=== PATIENT | male | born 1960 | race Caucasian/White ===

== ENCOUNTER 2018-12-19 16:25 | Emergency (ER) | payer BC ==
[~2018-12-19] VITALS: Ht 188 cm; Wt 83.9 kg
[2018-12-19] MEDS ORDERED: TETANUS/DIPHTHERIA TOX ADULT 0.5 ML SYR IM ONE (17:15)
--- NOTE | 2018-12-19 17:32 | Diagnostic Imaging Report ---
Exam: Right finger 3 views History: Pain Comparison: None. Findings: Fracture of the tuft distal phalanx index finger with soft tissue defect. Other structures visualized intact Impression: Fracture of the tuft distal phalanx index finger with soft tissue defect. Signed by: Dr. Alex Marie M.D. on 12/19/2018 5:29 PM
[2018-12-19] MEDS ORDERED: CEFAZOLIN SOD 1 GM VIAL IM ONE (18:45)
[2018-12-19 18:56] VITALS: BP 121/81
== END 2018-12-19 18:57 | disposition home or self-care (01) ==
LOC: ER 16:25
DX: S62.630B Displaced fracture of distal phalanx of right index finger, initial encounter for open fracture (principal); S61.300A Unspecified open wound of right index finger with damage to nail, initial encounter; W29.8XXA Contact with other powered hand tools and household machinery, initial encounter; Y92.008 Other place in unspecified non-institutional (private) residence as the place of occurrence of the external cause
CPT/HCPCS: 73140; 90471; 90714; 99283; J0690

== ENCOUNTER 2019-05-13 16:21 | Inpatient (IN) | payer BC ==
[~2019-05-13] VITALS: Ht 188 cm; Wt 84.4 kg
--- OUTSIDE RECORDS SUMMARY | 2019-05-13 16:24 | XMS REPORT ---
Author Author [facility] Address Unknown Phone Unavailable Care Team Providers Care Clinical Rehabilitation Coordinator Name Role Phone Indira CRUZ Unavailable Unavailable Problems This patient has no known problems. Allergies, Adverse Reactions, Alerts This patient has no known allergies or adverse reactions. Medications This patient has no known medications. Results Test Description Test Time Test Comments Text Results Atomic Results Result Comments FINGER RIGHT 2018-12-19 17:27:00 [place] [address] Patient Name: MATTEO DIXON MR #: [id number] : 1960 Age/Sex: 58/M Req #: [id number] Adm Physician: Ordered by: RAQUEL CRUZ MD Report #: [id number] Location: ER Room/Bed: Procedure: [id number] DX/FINGER RIGHT Exam Date: 12/19/18 Exam Time: 1712 REPORT STATUS: Signed Exam: Right finger 3 views History: Pain Comparison: None. Findings: Fracture of the tuft distal phalanx index finger with soft tissue defect. Other structures visualized intact Impression: Fracture of the tuft distal phalanx index finger with soft tissue defect. Signed by: Dr. Kj Anna M.D. on 12/19/2018 5:29 PM Dictated By: KJ ANNA MD [id number] Transcribed By: TEENA on 12/19/18 4813 COPY TO: RAQUEL CRUZ MD
--- OUTSIDE RECORDS SUMMARY | 2019-05-13 16:24 | XMS REPORT | Continuity of Care Document ---
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 Name Role Phone [facility] Unavailable Unavailable Problems No Data Provided for This Section Medications No Data Provided for This Section Allergies, Adverse Reactions, Alerts No Known Medication Allergies Immunizations No Data Provided for This Section Results No Data Provided for This Section Pathology Reports No Data Provided for This Section Diagnostic Reports No Data Provided for This Section Consultation Notes No Data Provided for This Section Discharge Summaries No Data Provided for This Section History and Physicals No Data Provided for This Section Vital Signs No Data Provided for This Section Encounters Location Location Details Encounter Type Encounter Number Reason For Visit Attending Provider ADM Date DC Date Status Source Departed Emergency Room [id number] RAQUEL CRUZ MD 12/19/2018 12/19/2018 [facility] Procedures No Data Provided for This Section Assessment and Plan No Data Provided for This Section Plan of Care Plan of Care Date Source Discharge Date 12/19/18 6:57pm Disposition HOME, SELF-CARE Condition at Discharge Stable Instructions/Education Provided Fractures - Phalanx (Finger) Forms Provided Work/School Excuse Prescriptions See Medication Section Additional Instructions/Education 1- You have an appointment at [facility] at 8[facility] with Dr Pierce 2- Go to the ER on [facility] to be registered 3- Do not eat or drink anything until surgery complete 12/19/2018 [facility] Social History Social History Date Source Smoking Status Start Date Stop Date Never Smoker 12/19/2018 [facility] Family History No Data Provided for This Section Advance Directives Order Name Results Value Date Source Advance Directives Advance Directives Directive Response Recorded Date/Time Does the patient have an advance directive? Yes 12/19/18 6:54pm If yes, is advance directive on file with [facility]? No 12/19/18 6:54pm If not on file with [facility] will patient provide a copy? No 04/26/19 6:54pm Do you have a Directive to Physician? Yes 12/19/18 6:54pm Do you have a Medical Power of Wrecker Operator? Yes 12/19/18 6:54pm Do you have an out of hospital Do Not Resuscitate Order? No 12/19/18 6:54pm Do you have any special needs we should be aware of? No 12/19/18 6:54pm Do you have a support person here with you today? Yes 12/19/18 6:54pm Did patient receive Notice of Privacy Practices? Yes 12/19/18 6:54pm Did patient receive patient rights and responsibilities? Yes 12/19/18 6:54pm 12/19/2018 [facility] Functional Status No Data Provided for This Section
[2019-05-13 17:27] VITALS: BP 134/68
[2019-05-13 17:35] VITALS: BP 134/68
[2019-05-13 17:36] VITALS: BP 134/68
[2019-05-13] MEDS ORDERED: ONDANSETRON HCL INJ 2MG/ML 2ML 2 MG/ML VIAL IV PRN (17:45)
[2019-05-13] MEDS ORDERED: LACTATED RINGER'S 1,000 ML ONE (17:49)
[2019-05-13] MEDS: LEVOFLOXACIN 500MG/D5W 100ML 100 ML IV SCH (17:54)
[2019-05-13] MEDS: LACTATED RINGER'S 1,000 ML IV SCH (17:55)
[2019-05-13] MEDS: HYDROMORPHONE 1MG/1ML INJ IV PRN (17:55)
[2019-05-13 18:05] LABS: BASOPHILS # (AUTO) 0.1 (0.0-0.1); BASOPHILS % 0.4 % (0.0-1.0); EOSINOPHILS # (AUTO) 0.1 (0.0-0.4); EOSINOPHILS % 0.7 % (0.0-6.0); HEMATOCRIT 38.5 % (38.2-49.6); HEMOGLOBIN 12.7 g/dL (14.0-18.0); LYMPHOCYTES # (AUTO) 0.8 (1.0-3.2); LYMPHOCYTES % 6.8 % (18.0-39.1); MEAN CORPUSCULAR HEMOGLOBIN 27.9 pg (28-32); MEAN CORPUSCULAR VOLUME 84.4 fL (81-99); MONOCYTES # (AUTO) 0.9 (0.2-0.8); MONOCYTES % 7.7 % (4.4-11.3); NEUTROPHILS # (AUTO) 10.2 (2.1-6.9); NEUTROPHILS % 83.8 % (38.7-80.0); PLATELET COUNT 195 x10e3/uL (140-360); RED BLOOD COUNT 4.56 x10e6/uL (4.3-5.7); RED CELL DISTRIBUTION WIDTH 12.5 % (11.7-14.4)
[2019-05-13 18:19] LABS: ANION GAP 14.4 mmol/L (8-16); BLOOD UREA NITROGEN 14 mg/dL (7-26); BUN/CREATININE RATIO 13 (6-25); CALCIUM 9.7 mg/dL (8.4-10.2); CARBON DIOXIDE 25 mmol/L (22-29); CHLORIDE 102 mmol/L (98-107); CREATININE, SERUM 1.04 mg/dL (0.72-1.25); EST GLOMERULAR FILTRATION RATE > 60 ML/MIN (60-); GLUCOSE 87 mg/dL (74-118); POTASSIUM 4.4 mmol/L (3.5-5.1); SODIUM 137 mmol/L (136-145)
[2019-05-13] MEDS ORDERED: PROPOFOL IV EMULSION 10 MG/ML 20 ML VIAL ONE (18:57)
[2019-05-13] MEDS ORDERED: ONDANSETRON HCL INJ 2MG/ML 2ML 2 MG/ML VIAL ONE (18:57)
[2019-05-13] MEDS ORDERED: LIDOCAINE HCL 2% LOCAL INJ 5 ML SDV VIAL INJ ONE (18:57)
[2019-05-13] MEDS: CLINDAMYCIN 300MG 50 ML IV SCH (19:39)
--- NOTE | 2019-05-13 19:45 | NUR ---
Patient returned from CT. IVF restarted. Patient is awake, alert, ambulatory and able to make needs know. POC discussed. Patient without any c/o voiced at this time. Spouse at bedside. He is aware he will be NPO for midnight for planned procedure. Call cheema within reach.
--- NOTE | 2019-05-13 19:58 | Diagnostic Imaging Report ---
EXAM: CT Chest WITH contrast INDICATION: Abscess. Cyst in right arm pit. COMPARISON: None TECHNIQUE: Chest was scanned utilizing a multidetector helical scanner from the lung apex through the level of the adrenal glands without administration of IV contrast. Coronal and sagittal reformations were obtained. Routine protocol was performed. IV CONTRAST: 100 mL of Isovue 360 COMPLICATIONS: None RADIATION DOSE: Total DLP: 616 mGy*cm Estimated effective dose: (DLP x 0.014 x size factor) mSv CTDIvol has been reviewed. It is below the limits set by the Radiation Protocol Committee (RPC). Dose modulation, iterative reconstruction, and/or weight based adjustment of the mA/kV was utilized to reduce the radiation dose to as low as reasonably achievable. FINDINGS: LINES/ TUBES: None. LUNGS AND AIRWAYS: Likely mild scarring/atelectasis in the lungs. Airways are normal. PLEURA: The pleural spaces are clear. HEART AND MEDIASTINUM: The thyroid gland is normal. No mediastinal, hilar or axillary lymphadenopathy. The heart is normal in size. There is no pericardial effusion. UPPER ABDOMEN: Unremarkable. BONES: The visualized bony thorax is within normal limits. SOFT TISSUES: Skin thickening with inflammatory change in the right axillary region with an associated ill-defined 4.6 x 4.0 x 4.0 cm low density mass along the lateral right chest wall localized to the superficial subcutaneous fat best seen on series 2 image 59-70. This could be due to a complex cyst or possibly a conglomeration of lymph nodes. IMPRESSION: Skin thickening with inflammatory change in the right axillary region with an associated ill-defined 4.6 x 4.0 x 4.0 cm low density mass along the lateral right chest wall localized to the superficial subcutaneous fat best seen on series 2 image 59-70. This could be due to a complex cyst or possibly a conglomeration of lymph nodes. Signed by: Dr. Tj Gay M.D. on 05/13/2019 7:31 PM
[2019-05-13 20:25] VITALS: BP 115/61
[2019-05-13 21:01] VITALS: BP 115/61
[2019-05-13] MEDS: VANCOMYCIN 1GM/NS 250 ML 250 ML IV SCH (22:30)
[2019-05-14] VITALS (7 sets, daily range): BP systolic 111–139; BP diastolic 60–71
[2019-05-14] MEDS ORDERED: ACETAMINOPHEN 1000 MG/100 ML IV SCH
[2019-05-14] MEDS ORDERED: ACETAMINOPHEN 1000 MG/100 ML IV PRN
[2019-05-14] MEDS ORDERED: SODIUM CHLORIDE 0.9% 50ML 50 ML ONE (02:10)
[2019-05-14] MEDS ORDERED: IOPAMIDOL 370 MG/ML 200 ML INFUS..BTL INJ ONE (02:10)
[2019-05-14] MEDS: KETOROLAC TROMETHAMINE 30 MG/ML VIAL IV PRN ×3 (03:30→20:07)
[2019-05-14] MEDS: CLINDAMYCIN 300MG 50 ML IV SCH ×3 (03:31→20:06)
[2019-05-14] MEDS: LACTATED RINGER'S 1,000 ML IV SCH ×2 (07:05→12:32)
--- NOTE | 2019-05-14 07:07 | NUR ---
Walking rounds done and report given. Call cheema within reach.
--- NOTE | 2019-05-14 07:15 | NUR ---
rcvd patient in report this am. Patient is asleep in bed at this time. No s/s of distress noted
[2019-05-14] MEDS: VANCOMYCIN 1GM/NS 250 ML 250 ML IV SCH ×2 (09:06→22:03)
[2019-05-14] MEDS: LEVOFLOXACIN 500MG/D5W 100ML 100 ML IV SCH (17:08)
--- NOTE | 2019-05-14 19:17 | NUR ---
received report. patient aaox4, resting in bed. family member at bedside. stable condition. resp even and unlabored. no distress observed. no needs voiced. bed locked and in lowest position, call light within easy reach.
--- NOTE | 2019-05-14 22:45 | NUR ---
IV started to left wrist 20g. patient tolerated well.
[2019-05-14] MEDS: ZOLPIDEM TARTRATE 5 MG TAB PO PRN (23:00)
[2019-05-15] VITALS: BP 129/71
--- NOTE | 2019-05-15 | NUR ---
reminded patient of NPO status. patient agrees with POC. call light within reach.
[2019-05-15 04:00] VITALS: BP 127/76
[2019-05-15] MEDS: CLINDAMYCIN 300MG 50 ML IV SCH ×3 (04:50→21:33)
[2019-05-15] MEDS: KETOROLAC TROMETHAMINE 30 MG/ML VIAL IV PRN ×2 (04:50→11:29)
--- NOTE | 2019-05-15 07:00 | NUR ---
BEDSIDE SHIFT REPORT RECEIVED FROM NIGHT RN. PT DENIES NEEDS AT THIS TIME.
[2019-05-15] MEDS: LACTATED RINGER'S 1,000 ML IV SCH ×2 (07:30→23:05)
[2019-05-15 07:48] VITALS: BP 128/74
[2019-05-15 08:00] VITALS: BP 128/74
[2019-05-15] MEDS: VANCOMYCIN 1GM/NS 250 ML 250 ML IV SCH ×2 (10:19→23:13)
[2019-05-15 12:40] VITALS: BP 142/79
[2019-05-15] MEDS ORDERED: HYDROGEN PEROXIDE 120 ML BTL ONE (12:57)
--- NOTE | 2019-05-15 13:08 | NUR ---
PT OFF THE FLOOR TO OR.
[2019-05-15] MEDS ORDERED: BUPIVACAINE 0.25%/EPI 30ML SDV INJ ONE (13:16)
[2019-05-15] MEDS ORDERED: SODIUM CHLORIDE 0.9% 1000ML 1,000 ML IV SCH (13:44)
[2019-05-15] MEDS ORDERED: ONDANSETRON HCL INJ 2MG/ML 2ML 2 MG/ML VIAL IV PRN (13:45)
--- NOTE | 2019-05-15 14:33 | Operative Report ---
DATE OF PROCEDURE: 05/15/2019 SURGEON: Francesco Bustos MD PREOPERATIVE DIAGNOSIS: Right axillary abscess with lymphadenitis. POSTOPERATIVE DIAGNOSIS: Right axillary abscess with lymphadenitis. PROCEDURE PERFORMED: Incision and drainage of right axillary abscess with biopsy of the abscess cavity. ANESTHESIA: General. ESTIMATED BLOOD LOSS: Minimal. DRAINS: None. COMPLICATIONS: None. 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 The patient's CT scan upon admission revealed an inflammatory process of the right axilla. On physical examination, what appeared to be a conglomerate of nodes with inflammatory phlegmonous type of infection and he was given intravenous antibiotics until today when the abscess mature and he was taken to the operating room. INTRAOPERATIVE FINDINGS: A well defined abscess in the right axillary region, which was completely drained. Obtaining non-foul smelling pus. Culture and sensitivities were taken. The abscess cavity was biopsied even though this is most likely an infectious process secondary to methicillin-resistant Staph. Two quarter-inch [place] drains were placed to drain the abscess cavity and interconnected. DESCRIPTION OF PROCEDURE: With the patient lying on the operative table in the supine position after administration of general endotracheal anesthesia, he was prepped and draped for incision and drainage of abscess of the right axillary region. The most fluctuant area of the abscess was incised. A large pocket of pus was entered. Loculations were broken down. The pus was drained. Culture and sensitivities were taken. Two counter incision were made superior and inferolateral to that and then the three incisions were interconnected with a quarter-inch [place] drain that was secured to itself with 3-0 silk. The cavity was copiously irrigated. Part of the abscess cavity was biopsied. Bleeding points were cauterized. After copious irrigation, the cavity was packed with gauze and a sterile dressing was applied. The patient will be admitted. We will continue in the hospitalization care with intravenous antibiotics. Francesco Bustos MD PJR/MODL /[id number]
[2019-05-15] MEDS ORDERED: ACETAMINOPHEN 1000 MG/100 ML 100 ML IV ONE (14:39)
[2019-05-15] MEDS ORDERED: MIDAZOLAM HCL 2 MG/2 ML VIAL ONE (15:18)
[2019-05-15] MEDS ORDERED: FENTANYL CITRATE/PF 100MCG/2 ML INJ ONE (15:18)
[2019-05-15] MEDS: HYDROMORPHONE 1MG/1ML INJ IV PRN (16:24)
[2019-05-15] MEDS: LEVOFLOXACIN 500MG/D5W 100ML 100 ML IV SCH (18:16)
[2019-05-15 20:00] VITALS: BP 120/65
--- NOTE | 2019-05-15 20:00 | NUR ---
ROUNDS DONE, PATIENT RESTING IN BED WITH HOB ELEVATED WATCHING TV, DRESSING TO RIGHT AXILLARY REMAIN INTACT, NO DRAINAGE NOTED. CALL LIGHT REMAIN IN REACH. WILL CONTINUE TO MONITOR.
[2019-05-15] MEDS: ZOLPIDEM TARTRATE 5 MG TAB PO PRN (23:39)
[2019-05-15] MEDS: HYDROCODONE/APAP 7.5MG-325MG 1 EA TAB PO PRN (23:39)
[2019-05-16] VITALS (9 sets, daily range): BP systolic 115–148; BP diastolic 67–80
--- NOTE | 2019-05-16 | NUR ---
CONTINUE RESTING, WILL CONTINUE TO MONITOR. CALL LIGHT IN REACH.
[2019-05-16] MEDS ORDERED: ASPIRIN81 MG PO (02:37)
[2019-05-16] MEDS ORDERED: METOPROLOL TART25 MG PO (02:37)
[2019-05-16] MEDS ORDERED: ONE DAILY FOR1 EAC1 PO (02:37)
[2019-05-16] MEDS ORDERED: PROBIOTIC & AC1 EACH PO (02:37)
[2019-05-16] MEDS ORDERED: HYDROCHLOROTH12.5 M1 PO (02:37)
[2019-05-16] MEDS ORDERED: OMEPRAZOLE40 MG PO (02:37)
[2019-05-16] MEDS ORDERED: ZANTAC 7575 MG PO (02:37)
[2019-05-16] MEDS ORDERED: LOSARTAN POTASS25 MG PO (02:37)
[2019-05-16] MEDS ORDERED: ZETIA10 MG PO (02:37)
[2019-05-16] MEDS ORDERED: MAGNESIUM100 MG PO (02:37)
--- NOTE | 2019-05-16 04:00 | NUR ---
IV CONTINUE INFUSING, NO DISTRESS NOTED, DRESSING REMAIN INTACT NO DRAINAGE NOTED. WILL CONTINUE TO MONITOR.
[2019-05-16] MEDS: CLINDAMYCIN 300MG 50 ML IV SCH ×3 (04:39→20:41)
--- NOTE | 2019-05-16 06:59 | NUR ---
PATIENT CONTINUE RESTING IN BED, NO COMPLAINTS VOICED AT THIS TIME, REPORT GIVEN TO ONCOMING NURSE.
[2019-05-16] MEDS: VANCOMYCIN 1GM/NS 250 ML 250 ML IV SCH ×2 (10:00→21:13)
--- NOTE | 2019-05-16 14:10 | NUR ---
patient transferred to floor. report called to chio. all personal belonings gathered by patient. vitals stable with no distress at time of transfer.
--- NOTE | 2019-05-16 14:19 | NUR ---
PATIENT ARRIVED ON THE UNIT AT 1413 PER WHEELCHAIR FROM OBS ROOM 183. PATIENT IS IN STABLE CONDITION WITH NO S/S OF RESPIRATORY DISTRESS. NO PAIN VOICED. DRESSING TO RIGHT AXILLARY SITE IS DRY AND INTACT. CALL LIGHT IS WITHIN REACH, PATIENT INSTRUCTED TO CALL FOR ASSISTANCE NEEDED.
[2019-05-16] MEDS: HYDROCODONE/APAP 7.5MG-325MG 1 EA TAB PO PRN (16:55)
[2019-05-16] MEDS: LEVOFLOXACIN 500MG/D5W 100ML 100 ML IV SCH (16:57)
[2019-05-16] MEDS ORDERED: SODIUM CHLORIDE 0.9% 250ML 250 ML ONE ×2 (16:57→21:00)
--- NOTE | 2019-05-16 19:07 | NUR ---
PATIENT IS IN STABLE CONDITION WITH NO S/S OF RESPIRATORY DISTRESS-NO PAIN VOICED. DRESSING APPLIED TO RIGHT AXILLARY SITE- DRESSING IS DRY AND INTACT. PRESENT IN ROOM. CALL LIGHT IS WITHIN REACH, PATIENT INSTRUCTED TO CALL FOR ASSISTANCE NEEDED. REPORT GIVEN TO ONCOMING NURSE.
[2019-05-16] MEDS: ZOLPIDEM TARTRATE 5 MG TAB PO PRN (23:00)
[2019-05-17] VITALS (9 sets, daily range): BP systolic 115–144; BP diastolic 65–81
[2019-05-17] MEDS: CLINDAMYCIN 300MG 50 ML IV SCH ×3 (04:45→20:09)
--- NOTE | 2019-05-17 07:10 | NUR ---
PATIENT IN STABLE CONDITION WITH NO S/S OF RESPIRATORY DISTRESS- NO PAIN VOICED. DRESSING APPLIED TO RIGHT AXILLARY SURGICAL SITE- NO DRAINAGE NOTED. CALL LIGHT IS WITHIN REACH, PATIENT INSTRUCTED TO CALL FOR ASSISTANCE NEEDED.
[2019-05-17] MEDS: VANCOMYCIN 1GM/NS 250 ML 250 ML IV SCH ×2 (10:19→21:12)
[2019-05-17] MEDS: HYDROCODONE/APAP 7.5MG-325MG 1 EA TAB PO PRN ×2 (12:36→23:48)
--- NOTE | 2019-05-17 14:14 | NUR ---
RECEIVED CALLBACK FROM DR. PADRON- RECEIVED ORDER FOR VANCO TROUGH AND INFORMED DR. PADRON OF WOUND CULTURE RESULTS. NO NEW ORDERS ON IV ANTIBIOTICS. Addendum: 05/17/19 at 1417 by Juliette Ch RN RECEIVED CALLBACK FROM DR. PADRON AT [phone]
[2019-05-17] MEDS: LEVOFLOXACIN 500MG/D5W 100ML 100 ML IV SCH (16:56)
--- NOTE | 2019-05-17 19:13 | NUR ---
PATIENT IS IN STABLE CONDITION WITH NO S/S OF RESPIRATORY DISTRESS- PATIENT DENIES ANY AXILLARY PAIN. CALL LIGHT IS WITHIN REACH, PATIENT INSTRUCTED TO CALL FOR ASSISTANCE NEEDED. BEDSIDE REPORT GIVEN TO ONCOMING NURSE.
--- NOTE | 2019-05-17 22:43 | NUR ---
Dr. Joe Bustos to see pt, dressing changed
[2019-05-17] MEDS: ZOLPIDEM TARTRATE 5 MG TAB PO PRN (23:02)
[2019-05-18 01:18] VITALS: BP 125/71
[2019-05-18] MEDS: CLINDAMYCIN 300MG 50 ML IV SCH ×2 (05:07→12:05)
[2019-05-18 05:28] VITALS: BP 119/70
[2019-05-18 07:39] VITALS: BP 122/75
[2019-05-18] MEDS: VANCOMYCIN 1GM/NS 250 ML 250 ML IV SCH (09:32)
[2019-05-18] MEDS ORDERED: SODIUM CHLORIDE 0.9% 250ML 250 ML ONE (09:49)
--- NOTE | 2019-05-18 10:07 | NUR ---
patient up in bed, no distress noted, call light in reach
[2019-05-18 11:23] VITALS: BP 119/76
--- NOTE | 2019-05-18 11:23 | NUR ---
Dr Rusty Bustos here for rounds, stated patient can go home and f/up with him in office on 05/21/19.
[2019-05-18] MEDS ORDERED: TYLENOL WITH C1 EACH PO (11:43)
[2019-05-18] MEDS ORDERED: ZYVOX600 MG PO (11:44)
--- NOTE | 2019-05-18 13:16 | NUR ---
Patient discharged home, Alert with no distress, dressing rt axilla is intact, dressing supplied given, prescription given, patient verbalized understanding, at bed side, transported via wheelchair to [facility]
--- NOTE | 2019-05-19 01:51 | Discharge Summary ---
DISCHARGE DIAGNOSES: Left axillary cellulitis with abscess formation and lymphadenitis. Methicillin-resistant Staphylococcus infection of the right axilla region, in addition to the abscess. PROCEDURE PERFORMED: On 05/15/2019, incision and drainage and debridement of necrotic lymphadenitis and abscess of the left axillary region. HISTORY OF PRESENT ILLNESS AND HOSPITALIZATION COURSE: Otherwise healthy 59-year-old male admitted with swelling and tenderness of the right axillary region with an inflammatory mass in that location. The patient was started on intravenous antibiotics when the abscess mature. He was taken to the operating room on 05/15/2019, underwent incision and drainage and debridement of necrotic tissue, right axillary region. Culture and sensitivities revealed methicillin-resistant Staph sensitive to the vancomycin, which he was. The patient had a packing that was removed the day prior to discharge. His cellulitis and swelling resolved. He was afebrile. The patient culture and sensitivities results revealed methicillin-resistant Staph aureus, sensitive to Septra and to Zyvox. He was discharged from Septra DS one p.o. b.i.d. #28 and Zyvox 600 mg one p.o. b.i.d. #28 also. He was given instructions on wound care. He has no work tolerance. He will be seen in my office following discharge on of this week. He has two [place] drains that were left inside and they will be removed and he has no work tolerance at this point. MD STEPHAN Nye/LINDA /[id number]
== END 2019-05-18 13:17 | disposition home or self-care (01) | DRG 803 ==
LOC: IMCU 16:21 → OBSVTOIN 05-15 13:46 → MED/SURG3 05-16 14:17
PROVIDERS: ADMIT Surgery; ATTEND Surgery
PROC: 0JBF0ZZ Excision of Left Upper Arm Subcutaneous Tissue and Fascia, Open Approach (ICD-10-PCS; principal; 2019-05-15 13:16)
DX: L04.2 Acute lymphadenitis of upper limb (principal); L03.112 Cellulitis of left axilla; I96 Gangrene, not elsewhere classified; B95.62 Methicillin resistant Staphylococcus aureus infection as the cause of diseases classified elsewhere
CPT/HCPCS: 36415; 71260; 80048; 80202; 85025; 87071; 87075; 87186; 87205; 88304; 93005; G0378; J1170; J1885; J1956; J2001; J2250; J2405; J3010; J3370; J7030; J7050; J7121; Q9967

== ENCOUNTER → 2019-09-28 | Day surgery (SDC) | payer BC ==
[~2019-09-28] MED LIST: ACETAMINOPHEN 1000 MG/100 ML 100 ML IV ONE; ACETAMINOPHEN 1000 MG/100 ML IV ONE; ASPIRIN81 MG PO; BACITRACIN 50,000 UNIT VIAL ONE; BUPIVACAINE HCL 0.5% INJ 30 ML VIAL INJ ONE; CALCIUM; CEFAZOLIN SOD 1 GM/NS 50ML 100 ML IV ONE; DEXAMETHASONE SOD PHOS INJ 4 MG/ML VIAL ONE; FENTANYL CITRATE/PF 100MCG/2 ML INJ ONE; HYDROCHLOROTH12.5 M1 PO; HYDROMORPHONE 1MG/1ML INJ ONE; KETOROLAC TROMETHAMINE 30 MG/ML VIAL ONE; LIDOCAINE HCL (LTA) 4 ML SOLN ONE; LIDOCAINE HCL 2% LOCAL INJ 5 ML SDV VIAL INJ ONE; LOSARTAN POTASS25 MG PO; MAGNESIUM100 MG PO; METOPROLOL TART25 MG PO; MIDAZOLAM HCL 2 MG/2 ML VIAL ONE; MUPIROCIN22 GM TOP; OMEPRAZOLE40 MG PO; ONDANSETRON HCL INJ 2MG/ML 2ML 2 MG/ML VIAL ONE; ONE DAILY FOR1 EAC1 PO; PROBIOTIC & AC1 EACH PO; PROPOFOL IV EMULSION 10 MG/ML 20 ML VIAL ONE; SAW PALMETTO450 MG; SEVOFLURANE INHAL SOLN 250 ML PEN BTL ONE; TYLENOL WITH C1 EACH PO; VANCOMYCIN HCL 500 MG ONE; VITAMIN C; VITAMIN D400 UNIT PO; ZANTAC 7575 MG PO; ZETIA10 MG PO; ZYVOX600 MG PO
[2019-09-28 15:50] VITALS: BP 112/74
--- NOTE | 2019-09-29 08:37 | NUR ---
OPERATIVE NOTE ORTHOPEDICS DATE: 09/28/2019 PREOPERATIVE DIAGNOSIS: LEFT Displaced intraarticular distal radius fracture POSTOPERATIVE DIAGNOSIS: LEFT Displaced 4 part intraarticular distal radius fracture OPERATIONS PERFORMED: Open reduction and internal fixation of LEFT distal radius with allograft and flouroscopic interpretation SURGEON: Kristen Tinajero DO ANESTHESIA: General EBL: 15cc TOURNIQUET TIME: 120 Min COMPLICATIONS: None. COMPONENTS: Hector Short Wide Distal Radius Plate, 7 Locking Screws, 3 Cortical Screws CLINICAL SUMMARY: The patient is a 59-year-old right-hand dominant male who sustained a mechanical fall resulting in a fracture to the right distal radius and ulna OPERATION: The patient was brought to the operating table and placed in supine position and administered general anesthetic by the anesthesia. Preoperative antibiotics were provided. Once adequate anesthesia had been obtained, the LEFT upper extremity was prepped and draped in the usual sterile manner. The patient received preoperative antibiotics. Tourniquet was placed around the right upper extremity. The upper extremity was then elevated and exsanguinated using an Esmarch dressing. The tourniquet was elevated to 250 mmHg. The entire operation was performed with loop magnification. At this time an approximately 8 cm longitudinal incision was then made overlying the right flexor carpi radial is tendon from the flexion crease to the wrist proximally. This was carried down to the flexor carpi radialis, which was then retracted ulnarly. The floor of the flexor carpi radialis sheath was then incised exposing the flexor pronator m uscles. The flexor pollicis longus was retracted ulnarly and the remnants of the pronator quadratus was longitudinally incised 1 cm from its origin. It was then elevated off of the fracture site exposing the fracture site, which was dorsally displaced and shortened. This was an intraarticular four-part fracture. Under image control, the two volar pieces and dorsal pieces were then carefully manipulated and reduced. Due to the bone void dorsally, cancellous bone chips were used to help maintain volar tilt. K-wires were used to temporarily hold the reduction. The fracture ends were copiously irrigated with normal saline and curetted and then the fracture was reduced in the usual fashion by recreating the defect and distracting it. Further K-wires were then placed through the radial styloid into the proximal fragment. A Hector Variax Left Short Wide Width Distal Radius Plate for the LEFT wrist was then fashioned over and placed over the distal radius and secured with 4 K-wires. Proximal 3 2.7 Non-locking screws were used to secure the plate and 7 2.3 Locking screws were used distally. Care was used to avoid intraarticular penetration while maintaining subchondral support which was verified via flouroscopy. There was significant dorsal comminution along withand unstable intraarticular small dorsal lip piece. Images were obtained and interpreted by me demonstrating adequate reduction of the fragments and the fracture with hardware in appropriate alignment. The incision was thoroughly irrigated and homeostasis was maintained with electrocautery. The volar carpal ligaments were repaired and the remnants of the pronator quadratus were repair. The subcutaneous tissue was closed with a 2-0 vicryl and the skin was closed with a 3-0 monocryl. The skin was cleaned and steristrips with xeroform were placed over the incision. Through the use of an angiocatch, 10 cc of local anesthetic was placed within the incision. 4x4, Cling were used and a short arm was placed over the arm. The patient was then placed in a sling. The tourniquet was let down at 204 minutes. The fingers were immediately pink. The patient was awakened and taken to the recovery room in good condition. There were no operative complications. The patient tolerated the procedure well. Post operatively, the patient was examined and found to be neurovascularly intact.
== END | disposition home or self-care (01) ==
LOC: OR 09:21
PROVIDERS: ATTEND Orthopaedic Surgery
DX: S52.572A Other intraarticular fracture of lower end of left radius, initial encounter for closed fracture (principal); W19.XXXA Unspecified fall, initial encounter; Z01.810 Encounter for preprocedural cardiovascular examination
CPT/HCPCS: 25609; 93005; C1713 ×12; C1762; J0131; J0690; J1100; J1170; J1885; J2001; J2250; J2405; J2704; J3010; J3370

== ENCOUNTER 2019-11-23 16:00 | Outpatient (RCR) | payer BC ==
[~2019-11-23 16:00] MED LIST changes: -ACETAMINOPHEN 1000 MG/100 ML 100 ML IV ONE; -ACETAMINOPHEN 1000 MG/100 ML IV ONE; -BACITRACIN 50,000 UNIT VIAL ONE; -BUPIVACAINE HCL 0.5% INJ 30 ML VIAL INJ ONE; -CEFAZOLIN SOD 1 GM/NS 50ML 100 ML IV ONE; -DEXAMETHASONE SOD PHOS INJ 4 MG/ML VIAL ONE; -FENTANYL CITRATE/PF 100MCG/2 ML INJ ONE; -HYDROMORPHONE 1MG/1ML INJ ONE; -KETOROLAC TROMETHAMINE 30 MG/ML VIAL ONE; -LIDOCAINE HCL (LTA) 4 ML SOLN ONE; -LIDOCAINE HCL 2% LOCAL INJ 5 ML SDV VIAL INJ ONE; -MIDAZOLAM HCL 2 MG/2 ML VIAL ONE; -ONDANSETRON HCL INJ 2MG/ML 2ML 2 MG/ML VIAL ONE; -PROPOFOL IV EMULSION 10 MG/ML 20 ML VIAL ONE; -SEVOFLURANE INHAL SOLN 250 ML PEN BTL ONE; -VANCOMYCIN HCL 500 MG ONE
== END 2019-11-24 ==
LOC: OT 16:00
PROVIDERS: ATTEND Orthopaedic Surgery
DX: S52.502D Unspecified fracture of the lower end of left radius, subsequent encounter for closed fracture with routine healing (principal); M25.532 Pain in left wrist; M25.632 Stiffness of left wrist, not elsewhere classified; R53.1 Weakness

== ENCOUNTER 2019-12-23 14:58 | Outpatient (RCR) | payer BC | END 2019-12-24 | LOC: OT 14:58 | PROVIDERS: ATTEND Orthopaedic Surgery | DX: S52.502D Unspecified fracture of the lower end of left radius, subsequent encounter for closed fracture with routine healing (principal); M25.532 Pain in left wrist; M25.632 Stiffness of left wrist, not elsewhere classified; R53.1 Weakness ==

== ENCOUNTER 2020-01-22 15:00 | Outpatient (RCR) | payer BC | END 2020-01-24 | LOC: OT 15:00 | PROVIDERS: ATTEND Orthopaedic Surgery | DX: S52.502D Unspecified fracture of the lower end of left radius, subsequent encounter for closed fracture with routine healing (principal); M25.532 Pain in left wrist; M25.632 Stiffness of left wrist, not elsewhere classified; R53.1 Weakness ==

== ENCOUNTER 2020-01-29 15:01 | Outpatient (RCR) | payer BC | END 2020-02-23 | LOC: OT 15:01 | PROVIDERS: ATTEND Orthopaedic Surgery | DX: S52.502A Unspecified fracture of the lower end of left radius, initial encounter for closed fracture (principal); M25.532 Pain in left wrist; M25.632 Stiffness of left wrist, not elsewhere classified; R53.1 Weakness ==